=== PATIENT | male | born 1945 | race Caucasian/White ===

== ENCOUNTER → 2018-03-03 | Emergency (ER) | payer OTHER ==
[~2018-03-03] MED LIST: AMIODARONE HCL (50 MG/ ML) 3 ML VIAL IV ONE; EPINEPHrine HCL 1 MG/10 ML SYRG IV ONE; SODIUM BICARBONATE 8.4% INJ 50ML SYRINGE IV ONE
== END | disposition expired ==
LOC: ER 20:02
DX: I46.9 Cardiac arrest, cause unspecified (principal)
CPT/HCPCS: 36415; 36600; 71045; 80053; 81001; 82805; 83735; 84484; 85025; 85610; 85730; 92950; 99291; J0171; J0282; J1644; Q9967; 94002; J2250